=== PATIENT | male | born 1965 ===

== ENCOUNTER 2019-06-21 00:07 | Emergency (ER) | payer OTHER ==
[~2019-06-21] VITALS: Ht 177.8 cm; Wt 90.9 kg
[2019-06-21 00:20] VITALS: BP 128/80
[2019-06-21] MEDS ORDERED: ADDE10 PO (00:30)
== END 2019-06-21 01:45 | disposition left against medical advice (07) ==
LOC: EMS 00:11
DX: M79.604 Pain in right leg (principal); M79.605 Pain in left leg; Z53.21 Procedure and treatment not carried out due to patient leaving prior to being seen by health care provider